=== PATIENT | female | born 1965 | race Caucasian/White ===

== ENCOUNTER → 2023-12-16 | Day surgery (SDC) | payer MEDICARE, OTHER ==
[~2023-12-16] VITALS: Ht 160 cm; Wt 86.5 kg
[~2023-12-16] MED LIST: LR 1,000 ML IV SCH; Lidocaine PF 2% (20 MG/ML) 5 ML VIAL ONE; MERIBIN5 MG PO; Ondansetron 4 MG/2 ML VIAL IV PRN; PROFE180 MG PO; REGULOID POWDE369 GM PO; VITAMIN K0.1 MG; VITAMIND3 5000 PO; ZINC7.5 MG PO
[2023-12-16 07:12] VITALS: BP 137/81; PULSE 71; TEMP 97.1
[2023-12-16 08:18] VITALS: TEMP 97.1
[2023-12-16 08:25] VITALS: BP 91/51; PULSE 63
--- NOTE | 2023-12-16 08:25 | NUR ---
0825 PT ARRIVES VIA CART TO BAY 3. PT ASSISTED TO RECLINER WITH TWO STAFF. PT DENIES ANY PAIN JUST SCRATCHY THROAT. 0830 PT GIVEN SNACK AND HAD NO PROBLEMS. 0840 DC ISNTRUCTIONS GIVEN TO PT AND FAMILY. ALL QUESTIONS INVITED AND ANSWERED. INT DC'D INTACT WITH PRESSURE DRESSING APPLIED. PT GETTING DRESSED. 0849 IN TO SEE PT 0900 PT IS TAKEN TO POV IN WHEELCHAIR
[2023-12-16 08:40] VITALS: BP 115/73; PULSE 57
== END ==
LOC: SDCO 06:08
DX: K58.0 Irritable bowel syndrome with diarrhea (principal); K21.00 Gastro-esophageal reflux disease with esophagitis, without bleeding; K57.30 Diverticulosis of large intestine without perforation or abscess without bleeding; E66.9 Obesity, unspecified; G89.29 Other chronic pain; Z86.010 Personal history of colon polyps
CPT/HCPCS: J2704; J7120